=== PATIENT | male | born 1975 | race Caucasian/White ===

== ENCOUNTER 2020-05-02 18:51 | Emergency (ER) | payer OTHER ==
[2020-05-03 00:35] LABS: HEMOGLOBIN 16.4 gm/dl (14.0-17.5); RED BLOOD COUNT 5.31 M/UL (4.20-5.50); WHITE BLOOD COUNT 7.2 K/UL (4.5-11.0)
[2020-05-03 00:54] LABS: BUN/CREATININE RATIO 13 (0-10)
== END 2020-05-03 01:30 | disposition home or self-care (01) ==
LOC: ER1 18:51
PROVIDERS: Emergency Medicine
DX: K62.5 Hemorrhage of anus and rectum (principal); I10 Essential (primary) hypertension; F17.210 Nicotine dependence, cigarettes, uncomplicated; Z88.0 Allergy status to penicillin
CPT/HCPCS: 80053; 82270; 83690; 85025; 99283